=== PATIENT | female | born 1970 | race Caucasian/White ===

== ENCOUNTER → 2018-01-25 | Outpatient (CLI) | payer OTHER ==
[~2018-01-25] MED LIST: ALLEGRA 180MG180 MG PO; ASTELIN NASAL S34 ML NS; CLIMARA 0.1 PATCH.WK TD; KETOTIFEN FUMARA5 ML OU; LUNESTA2 MG PO; NEXIUM 40MG40 MG PO; OLYSIO; RESTASIS0.05%; RT ADVAIR 228 DISKUS IH; RT SPIRIVA18 MCG IH; SINGULAIR 110 MG/TAB PO; SOVALDI PO; [UNRECOGNIZED DRUG - OTHER] IH; [UNRECOGNIZED DRUG - OTHER] PO
== END ==
LOC: COL.RAD 08:15
DX: Z53.8 Procedure and treatment not carried out for other reasons (principal)